=== PATIENT | male | born 1980 | race African-American/Black ===

== ENCOUNTER → 2017-02-12 08:57 | Outpatient (CLI) | payer MEDICAID ==
--- NOTE | 2017-02-17 08:21 | EMG ---
PATIENT:ESTER COHN DATE OF SERVICE: 02/12/17 MEDICAL RECORD: [id number] DATE OF : 84 LOCATION: [facility] ADMISSION DATE: REFERRING PHYSICIAN: PAUL LARSON MD INTERPRETING PHYSICIAN: YOHAN MORALES MD DATE OF SERVICE: 02/12/2017 Referred as an outpatient by Paul Larson. ELECTROMYOGRAPHIC DATA: Electromyographic examination is limited to both upper extremities and is limited to the nerve conduction studies only at the request of the referring physician. In the right upper extremity, right median motor stimulation elicits a compound motor action potential with a distal latency of 4.0 milliseconds, peak amplitude of only 600 microvolts and calculated conduction velocity of 43 meters per second. Right ulnar motor stimulation elicits a compound motor action potential with a distal latency of 2.9 milliseconds, peak amplitude of 10 millivolts and calculated conduction velocity of 59 meters per second. Antidromic right median sensory stimulation elicits no reliable response. Antidromic right ulnar sensory stimulation elicits a response with a distal latency of 3.4 milliseconds, amplitude of 18 microvolts and calculated conduction velocity of 69 meters per second. The right median F wave is absent. In the left upper extremity, left median motor stimulation elicits a compound motor action potential with a distal latency of 7.9 milliseconds, peak amplitude of 4 millivolts, and calculated conduction velocity of 48 meters per second. Left ulnar motor stimulation elicits a compound motor action potential with a distal latency of 3.0 milliseconds, peak amplitude of 10 millivolts and calculated conduction velocity of 63 meters per second. Left ulnar motor stimulation across the elbow fails to elicit evidence of conduction block at this level. Antidromic left median sensory stimulation elicits no reliable response. Antidromic left ulnar sensory stimulation elicits a response with a distal latency of 3.2 milliseconds with amplitude of 17 microvolts and calculated conduction velocity of 68 meters per second. The left median F wave has a latency of 40 milliseconds. Needle electrode examination is not performed at this time at the request of the referring physician. 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 No further conclusions may be drawn in the absence of a needle electrode examination. TRANSINT:[id number] Voice Confirmation ID: [id number] DOCUMENT ID: [id number] ELECTROMYGRAM/NERVE CONDUCTION [id number] ESTER COHN DONALD P MD at 0821 CC: [id number] DICTATION DATE: 02/13/17820 DIRECTOR OF PROCUREMENT: 02/14/17 0501 DEP CLI 02/12/17 [id number] [place] [address]
== END | disposition home or self-care (01) ==
LOC: D.CN 01-29 09:00
DX: G62.9 Polyneuropathy, unspecified (principal)